=== PATIENT | male | born 1940 | race Caucasian/White ===

== ENCOUNTER 2021-07-16 07:19 | Outpatient (CLI) | payer MEDICARE | END 2021-07-16 07:20 | disposition home or self-care (01) | LOC: CSHCT 07:19 | PROVIDERS: ATTEND Internal Medicine Cardiovascular Disease | DX: I65.29 Occlusion and stenosis of unspecified carotid artery (principal); I65.21 Occlusion and stenosis of right carotid artery | CPT/HCPCS: 70498; 82565 ==